=== PATIENT | male | born 1970 | race Caucasian/White ===

== ENCOUNTER → 2024-09-29 15:06 | Outpatient (REF) | payer BC, SELFPAY | LOC: DHSLP 15:06 | PROVIDERS: ATTENDING PHYSICIAN Registered Nurse | DX: G47.33 Obstructive sleep apnea (adult) (pediatric) (principal) | CPT/HCPCS: 95800 ==

== ENCOUNTER → 2025-04-25 12:53 | Outpatient (REF) | payer BC, SELFPAY | LOC: RAD 12:53 | PROVIDERS: ATTENDING PHYSICIAN Registered Nurse | DX: R74.8 Abnormal levels of other serum enzymes (principal) | CPT/HCPCS: 76700 ==